=== PATIENT | female | born 1975 | race Caucasian/White ===

== ENCOUNTER → 2016-07-31 | Outpatient (CLI) | payer OTHER ==
[~2016-07-31] MED LIST: BIOT1SUB SL; CYCL1TAB29 PO; GABA100C4 PO; HYDR-3583 PO; LEVO.125 PO; LIOT5TAB3 PO; MAGN1POW28; MULT1TAB84 PO; NAPR500T PO; OMEG5CAP; PANT40TA3 PO; PRED10 PO; VITA100064 PO; VITA10007 PO; VITA500T49 PO
== END ==
LOC: CPRE 11:58
PROVIDERS: ATTEND Neurological Surgery
DX: M51.16 Intervertebral disc disorders with radiculopathy, lumbar region (principal); M51.36 Other intervertebral disc degeneration, lumbar region

== ENCOUNTER → 2016-08-02 | Day surgery (SDC) | payer OTHER ==
[~2016-08-02] VITALS: Ht 170.2 cm; Wt 96.8 kg
[~2016-08-02] MED LIST changes: +*ONDANSETRON 4 MG VIAL PERIprocedural Use ONLY ONE; +*morphine SULFATE 8 MG/ML PERIprocedure ONLY ONE; +ACETAMINOPHEN 1000 MG/100 ML VIAL IV ONE; +ACETAMINOPHEN/HYDROcodone 325 MG/10 MG TAB PO PRN; +BUPIVACAINE/EPINEPHRINE 0.5% PF 30 ML VIAL ONE; +DEXAMETHASONE SOD PHOS 4 MG/ML VIAL IV PRN; +DEXAMETHASONE SOD PHOS 4 MG/ML VIAL ONE; +DO NOT ADM ANY ANTICOAGULANT DRUGS XX PRN; +FAMOTIDINE 20 MG/2 ML VIAL ONE; +GELFOAM SIZE 100 ONE; +HYDROmorphone HCL PF 2 MG/ML VIAL ONE; +INSULIN HUMAN REGULAR 1,000 UNITS/10 ML VIAL SQ PRN; +LACTATED RINGER'S 1000 ML IV SCH; +METOCLOPRAMIDE HCL 10 MG/2 ML VIAL IV PUSH PRN; +METOPROLOL TARTRATE 25 MG TAB PO PRN; +MIDAZOLAM HCL 2 MG/2 ML VIAL ONE; +MORPHINE SULFATE 4 MG/ML INJ IV PUSH PRN; +MORPHINE SULFATE 8 MG/ML INJ ONE; +NEOSTIGMINE 3 MG/3 ML SYR IV ONE; +ONDANSETRON HCL 4 MG/2 ML VIAL IV PUSH ONE; +PROPOFOL 200 MG/20 ML AMP IV ONE; +SODIUM CHLOR 0.9% 1000 ML INJ 1,000 ML IV SCH; +SODIUM CHLOR 0.9% 250 ML INJ 250 ML ONE; +SODIUM CHLORID 0.9% 500 ML IV SCH; +THROMBIN (TOPICAL) 5,000 UNIT VIAL ONE; +VANCOMYCIN HCL 1000 MG ON-CALL/NS 250 ML IV SCH; +VANCOMYCIN HCL 1000 MG VIAL ONE; +ePHEDrine/NS 25 MG/5 ML SYR IV ONE; +fentaNYL CITRATE 250 MCG/5 ML AMP ONE; +methylPREDNISolone ACETATE 40 MG/ML VIAL ONE
[2016-08-02 06:48] VITALS: BP 138/97; PULSE 83; RESP 16; TEMP 98.5; O2SAT 98
--- NOTE | 2016-08-02 09:52 | PD.OP ---
Andrew Valle MD Terry Rodarte, Operative Report Date of Surgery: Aug 02, 2016 Preoperative Diagnosis: Intractable low back pain with left S1 radiculopathy; L5-S1 disc herniation with facet arthropathy and associated spinal and foraminal stenosis Postoperative Diagnosis: Same Procedure: Left L5-S1 hemilaminotomy with microdiscectomy; microsurgical technique Anesthesia: Gen. endotracheal by Kelsie Powell Surgeon: Ryan Eastman M.D. Type Copy Examiner(s): Pamella Henriquez Operation and Findings: Following administration of general endotracheal anesthesia, patient received vancomycin 1 g intravenously. Sequential compression devices were placed for DVT prophylaxis. She was then turned in prone position on Shane frame and the Bao table and all pressure points adequately padded. The lumbar region was then shaved and prepped with a Betadine and ChloraPrep. Sterile draping undertaken with Ioban. Midline incision overlying the L5-S1 level was then made after infiltrating the skin with 0.5% Marcaine with epinephrine solution. The skin incision was made extending down through the fascia and then using the subperiosteal plane on the left side the muscular attachments to the spinous process and lamina were detached. Intraoperative fluoroscopy was used for level confirmation and further dissection undertaken using microtechnique with microscope magnification. The inferior portion of the L5 and superior portion of the S1 lamina were then drilled out and the underlying ligamentum flavum also removed. There was some facet arthropathy noted in the medial portion of facet was also resected and the lateral recess decompressed. Epidural venous stasis which he with the bipolar cautery along with Gelfoam and thrombin and bone wax used at the laminotomy edges for hemostasis. There was significant foraminal stenosis and a medial facetectomy was undertaken along with foraminotomy decompressed the traversing S1 nerve root and exiting L5 nerve root. The thecal sac was then gently retracted with a nerve root retractor and an extruded disc fragment was identified. Fragments were removed with pituitary forceps and the nerve root impingement along with thecal sac compression decompressed. The area was then copiously irrigated with vancomycin solution. The retractors removed and the muscle fascia proximal using 2-0 Vicryl interrupted stitches. 3-0 Vicryl subcuticular stitches were also placed in an interrupted fashion and planned skin closure was with Mastisol and Steri-Strips. A sterile dressing was then applied and the patient then turned in the supine position and extubated and taken to recovery room in stable condition. There were no intraoperative complications and all sponge and needle count was correct at the end of the procedure. Estimated blood loss about 20 ml. Ryan Eastamn MD Aug 02, 2016 09:52
--- NOTE | 2016-08-02 10:12 | RADRPT ---
EXAM DATE/TIME: 08/02/2016 07:02 [facility] COMPARISON: No previous studies available for comparison. INDICATIONS : L5-S1 alexys-laminectomy. Level localization. MEDICAL HISTORY : None. SURGICAL HISTORY : None. ENCOUNTER: Initial ACUITY: 1 day PAIN SCORE: Non-responsive. LOCATION: Lumbar spine. CONCLUSION: Metallic probe is directed at L5-S1. Francisco Javier Benitez MD FACR on August 02, 2016 at 10:10 Board Certified Radiologist. This report was verified electronically.
[2016-08-02 13:48] VITALS: BP 110/74; PULSE 90; RESP 20; TEMP 97.9; O2SAT 95
== END | disposition home or self-care (01) ==
LOC: HSDC 05:53 → EDUNIT# 08:30
PROVIDERS: ATTEND Neurological Surgery
DX: M51.17 Intervertebral disc disorders with radiculopathy, lumbosacral region (principal); M48.07 Spinal stenosis, lumbosacral region
CPT/HCPCS: 00630; 63030; 72020; 76000; J0131; J1030; J1100; J1170; J2250; J2270; J2405; J2710; J2765; J3010; J3370; J7050; J7120